=== PATIENT | female | born 1975 | race Caucasian/White ===

== ENCOUNTER 2017-02-28 05:19 | Inpatient (IN) ==
[2017-02-25 08:10] LABS: MANUAL DIFF NEEDED? NO; URINE MICROSCOPIC NEEDED? NO; URINE SOURCE VOIDED
[2017-02-25 08:24] LABS: BASO% 0.4 % (0.0-0.8); EOS# 0.31 X1000 (0.0-0.7); EOS% 3.3 % (0.0-10.0); HEMOGLOBIN 12.1 g/dL (12.0-16.0); IMM GRAN# 0.01 X1000 (0.0-0.04); IMM GRAN% 0.1 % (0.0-0.5); LYMPH# 2.34 X1000 (1.2-3.4); LYMPH% 24.9 % (20.5-51.1); MCH 24.9 PG (27-31); MCHC 31.8 g/dL (33-37); MCV 78.2 FL (81-99); MONO# 0.77 X1000 (0.11-0.59); MONO% 8.2 % (1.7-9.3); MPV 10.1 FL (7.4-10.4); NEUT% 63.1 % (42.2-75.2); PLT 286 X1000 (130-400); RBC 4.86 XMIL (4.2-5.4)
[2017-02-25 08:42] LABS: BILIRUBIN URINE NEGATIVE (NEGATIVE); BLOOD URINE NEGATIVE (NEGATIVE); CLARITY CLEAR (CLEAR); COLOR YELLOW; GLUCOSE URINE NEGATIVE (NEGATIVE); LEUKOCYTES URINE NEGATIVE (NEGATIVE); NITRITE URINE NEGATIVE (NEGATIVE); PROTEIN URINE NEGATIVE (NEGATIVE); SP GRAVITY URINE 1.015; UROBILINOGEN URINE NORMAL
--- NOTE | 2017-02-28 04:31 | HISTORY AND PHYSICAL ---
HISTORY OF PRESENT ILLNESS: Patient is a 42-year-old G0 who presents with multi-fibroid uterus causing pain, also with a history of abnormal uterine bleeding. Findings discussed with patient and she desires to proceed to the operating room for total abdominal hysterectomy and bilateral salpingectomy. Risks, benefits and alternatives were discussed with the patient. She desires to proceed. PAST MEDICAL HISTORY: None. PAST SURGICAL HISTORY: Plantar fasciitis surgery. OB HISTORY: G0. SAFETY MANAGER HISTORY: As above. Normal Pap smear in 2017. SOCIAL HISTORY: No tobacco use. PHYSICAL EXAMINATION: VITAL SIGNS: The patient is afebrile with vital signs stable. GENERAL APPEARANCE: Patient in no acute distress. LUNGS: Respirations nonlabored. ABDOMEN: Soft, nontender. Approximately 24-week, multi-fibroid uterus. Office endometrial biopsy attempted with return of endocervical tissue only. Pap smear normal in 2017. ASSESSMENT AND PLAN: The patient is a 42-year-old G0 with multi-fibroid uterus. We will proceed to the operating room for total abdominal hysterectomy, bilateral salpingectomy and other indicated procedures. cc: Stephanie Love MD MTDD
[2017-02-28] MEDS ORDERED: KEFZOL 1 GM/D5W 1 GM/50 ML IVPB IV ONE (06:00)
[2017-02-28] MEDS ORDERED: LR 1,000 ML IV SCH ×2 (06:00→10:34)
[2017-02-28] MEDS ORDERED: ZOFRAN IV ONE (06:19)
[2017-02-28] MEDS ORDERED: SODIUM CHLORIDE 0.9% INJ ONE (06:19)
[2017-02-28] MEDS ORDERED: PEPCID IV ONE (06:19)
[2017-02-28] MEDS ORDERED: VERSED ONE (06:33)
[2017-02-28] MEDS ORDERED: DIPRIVAN 1% ONE (06:33)
[2017-02-28] MEDS ORDERED: FENTANYL ONE (06:33)
[2017-02-28] MEDS ORDERED: XYLOCAINE-MPF 2% ONE (06:35)
[2017-02-28] MEDS ORDERED: ZEMURON ONE (06:35)
[2017-02-28] MEDS ORDERED: QUELICIN ONE (06:35)
[2017-02-28] MEDS ORDERED: KEFZOL 1 GM/D5W 1 GM/50 ML IVPB ONE (06:58)
[2017-02-28] MEDS ORDERED: DECADRON ONE (07:23)
[2017-02-28] MEDS ORDERED: EPHEDRINE ONE (07:25)
[2017-02-28 07:36] LABS: URINE MICROSCOPIC NEEDED? NO; URINE SOURCE CATH
[2017-02-28] MEDS ORDERED: LR 1,000 ML ONE ×2 (07:40→09:17)
[2017-02-28 07:55] LABS: BILIRUBIN URINE NEGATIVE (NEGATIVE); BLOOD URINE NEGATIVE (NEGATIVE); CLARITY CLEAR (CLEAR); COLOR YELLOW; GLUCOSE URINE NEGATIVE (NEGATIVE); LEUKOCYTES URINE NEGATIVE (NEGATIVE); NITRITE URINE NEGATIVE (NEGATIVE); PROTEIN URINE NEGATIVE (NEGATIVE); UROBILINOGEN URINE NORMAL
[2017-02-28] MEDS ORDERED: ROBINUL ONE ×2 (07:57→08:02)
[2017-02-28] MEDS ORDERED: NEOSTIGMINE ONE (08:02)
[2017-02-28] MEDS ORDERED: D10W 1,000 ML ONE (08:19)
[2017-02-28] MEDS ORDERED: LASIX ONE (08:21)
[2017-02-28] MEDS ORDERED: ZOFRAN IV PRN ×2 (09:01→10:34)
[2017-02-28] MEDS: DILAUDID ONE ×2 (09:21→09:26)
[2017-02-28] MEDS ORDERED: PHENERGAN IV PRN (10:34)
[2017-02-28] MEDS ORDERED: NARCAN IV PRN (10:34)
[2017-02-28] MEDS ORDERED: BENADRYL IV PRN (10:34)
[2017-02-28] MEDS ORDERED: SODIUM CHLORIDE 0.9% INJ PRN (10:34)
[2017-02-28] MEDS ORDERED: DILAUDID PCA VIAL IV PRN (10:34)
[2017-02-28] MEDS ORDERED: DILAUDID IV ONE (10:45)
[2017-02-28] MEDS: TORADOL IV SCH ×2 (15:14→20:42)
[2017-02-28] MEDS: LR 1,000 ML IV SCH ×3 (15:14→22:26)
[2017-02-28] MEDS: PERIDEX MT SCH (20:42)
[2017-03-01] MEDS: LR 1,000 ML IV SCH (03:20)
[2017-03-01] MEDS: TORADOL IV SCH ×2 (03:20→09:15)
[2017-03-01 06:04] LABS: HEMATOCRIT 33.8 % (37.0-47.0); HEMOGLOBIN 10.3 g/dL (12.0-16.0); MCH 24.4 PG (27-31); MCHC 30.5 g/dL (33-37); MCV 80.1 FL (81-99); MPV 10.1 FL (7.4-10.4); RBC 4.22 XMIL (4.2-5.4)
[2017-03-01] MEDS: PERIDEX MT SCH ×2 (09:08→20:56)
[2017-03-01] MEDS ORDERED: D/C PCA XX ONE (13:23)
[2017-03-01] MEDS ORDERED: PERCOCET-5 PO PRN (13:24)
[2017-03-01] MEDS ORDERED: MORPHINE IV PRN (13:25)
[2017-03-01] MEDS: PERCOCET-10 PO PRN ×2 (16:50→22:31)
[2017-03-02] MEDS: PERCOCET-10 PO PRN ×3 (04:40→18:04)
[2017-03-02] MEDS ORDERED: SYNTHROID PO ONE (08:53)
[2017-03-02] MEDS ORDERED: SYNTHROID PO SCH (09:00)
[2017-03-02] MEDS: PERIDEX MT SCH ×2 (09:02→20:34)
[2017-03-02] MEDS: SYNTHROID PO SCH (10:11)
[2017-03-02] MEDS: MYLICON PO PRN ×2 (11:34→15:58)
[2017-03-02] MEDS: MYLICON PO SCH ×3 (13:18→20:34)
[2017-03-02] MEDS ORDERED: DULCOLAX PR PRN (16:41)
[2017-03-03] MEDS: PERCOCET-10 PO PRN ×2 (00:17→06:09)
[2017-03-03] MEDS ORDERED: SYNTHROID PO SCH (07:00)
[2017-03-03] MEDS: SYNTHROID PO SCH (07:06)
[2017-03-03 08:07] VITALS: BP 119/76
--- NOTE | 2017-03-03 09:03 | DISCHARGE SUMMARY ---
ADMISSION DATE: 02/28/2017 DISCHARGE DATE: 03/03/2017 ADMITTING DIAGNOSIS: Symptomatic uterine leiomyomata. PRINCIPAL DIAGNOSIS: Symptomatic uterine leiomyomata. PRINCIPAL PROCEDURE: Abdominal hysterectomy. SUMMARY: Nat Mccabe is a 42-year-old, nulliparous patient with multiple fibroid uterus. She has abnormal uterine bleeding and pain. After discussing options with the patient, Dr. Fuentes admitted her and took her to the operating room where an abdominal hysterectomy was performed. She also had a bilateral salpingectomy. Final pathology report showed uterine leiomyomata. There were no intraoperative complications. Postoperatively, the patient has done well. She has remained afebrile and all vital signs are stable. She had an admission hemoglobin and hematocrit of 12.1/38 with discharge hemoglobin and hematocrit being 10.3/33.8. On the day of discharge, cardiac and pulmonary examinations were normal. Bowel and bladder function was normal. Incision was clean and dry, and she was having scant vaginal bleeding. Ms. Mccabe is being discharged today and will be seen back in the office in [address] Fuentes. Routine discharge instructions, activity limitations, and precautions were discussed. She will continue her current home medications. She is given prescriptions for Percocet 10 #30 and Motrin 800 mg for postoperative pain. cc: MD Stephanie Disla MD
--- NOTE | 2017-03-16 09:40 | OPERATIVE NOTE ---
PROCEDURE DATE: 02/28/2017 DATE OF SURGERY: 02/28/2017. PREOPERATIVE DIAGNOSES: 1. Abnormal uterine bleeding. 2. Multi fibroid uterus. POSTOPERATIVE DIAGNOSES: 1. Abnormal uterine bleeding. 2. Multi fibroid uterus. PROCEDURE: Total abdominal hysterectomy with bilateral salpingectomy and cystoscopy. SURGEON: Stephanie Love MD. ACCOUNTANT COST: Sim. ANESTHESIA: General. ESTIMATED BLOOD LOSS: 200 mL. COMPLICATIONS: None. COUNTS: Correct x2. FINDINGS: Approximately 24 week multi fibroid uterus. Grossly normal-appearing ovaries bilaterally. INDICATION FOR PROCEDURE: Patient is a 42-year-old, G 0 with a history of abnormal uterine bleeding with multi fibroid uterus. Risks, benefits and alternatives discussed with the patient, and she desires to proceed to the operating room for total abdominal hysterectomy and bilateral salpingectomy. PROCEDURE IN DETAIL: After proper informed consent was obtained, the patient was taken to the operating room and placed in the dorsal supine position with adequate general anesthesia. Abdomen and vagina were prepped and draped in the normal sterile fashion for abdominal surgery. After a proper time-out performed, a vertical midline incision was made to the level of the umbilicus. This was carried down to the underlying fascia, which was subsequently transected gaining entry into the abdomen. The uterus was then encountered and elevated out of the pelvis. At this time we proceeded with the hysterectomy. The right fallopian tube was transected using the LigaSure device. This was carried down to the round ligament, which was also transected with subsequent transection of the broad ligament. The uterine vessels were coagulated and transected using the LigaSure device with care to avoid the ureter. Similar was carried out on the left side. We then proceeded with clamp, cut and tie going down the cardinal ligament on the right side. Similar was carried out on the left, and the uterus was transected at the level of the internal cervical os. At this time, the O'Jc O'Gamboa retractor was placed, and the bowel was packed away. The cervix was then elevated using Allis clamps and the remaining cardinal ligaments and uterosacral ligaments were clamped, cut, and tied using #1 Vicryl with removal of the cervical specimen. The vagina was then reapproximated using #1 Vicryl in interrupted [id number] sutures. The pedicles were inspected and noted to be hemostatic. Attention was then turned to closure. The peritoneum was reapproximated using 3-0 chromic in a running, continuous fashion. The muscles were inspected and noted to be hemostatic. The fascia was then reapproximated using #1 PDS in a running, continuous fashion. Subcutaneous tissue was reapproximated using 3-0 chromic in a running continuous fashion. The skin was reapproximated using sterile skin clips. Attention was then turned to cystoscopy. Cystoscope was placed and bladder was noted to be intact with no sutures visible with efflux from bilateral ureteral orifices. The cystoscope was removed. The patient was taken to recovery in stable condition. cc: Stephanie Love MD
== END 2017-03-03 09:40 | disposition home or self-care (01) ==
LOC: P.WC 05:19
PROVIDERS: ADMIT Obstetrics & Gynecology; ATTEND Obstetrics & Gynecology